=== PATIENT | male | born 1965 | race Caucasian/White ===

== ENCOUNTER 2019-05-11 13:07 | Inpatient (IN) | payer MEDICARE ==
[~2019-05-11] VITALS: Ht 172.7 cm; Wt 138.3 kg
[2019-05-11] MEDS ORDERED: GLUCOPHAGE1000 MG PO (13:15)
[2019-05-11] MEDS ORDERED: NORVASC10 MG (13:16)
[2019-05-11] MEDS ORDERED: HYDRALAZINE HCL50 MG PO (13:16)
[2019-05-11] MEDS ORDERED: GLUCOTROL 5 MG T5 MG PO (13:16)
[2019-05-11] MEDS ORDERED: NORVASC10 MG PO (13:16)
[2019-05-11] MEDS ORDERED: LISINOPRIL40 MG PO (13:16)
[2019-05-11] MEDS ORDERED: TENORMIN50 MG PO (13:16)
[2019-05-11] MEDS ORDERED: ALDACTONE50 MG PO (13:17)
[2019-05-11] MEDS ORDERED: LIPITOR40 MG PO (13:17)
[2019-05-11] MEDS ORDERED: OMEPRAZOLE40 MG PO (13:17)
[2019-05-11 13:43] LABS: APPEARANCE CLEAR (CLEAR); BILIRUBIN NEGATIVE (NEGATIVE); COLOR YELLOW (YELLOW); GLUCOSE NEGATIVE (NEGATIVE); KETONE NEGATIVE (NEGATIVE); NITRITE NEGATIVE (NEGATIVE); PROTEIN NEGATIVE (NEGATIVE); UROBILINOGEN NORMAL (NORMAL)
--- NOTE | 2019-05-11 13:45 | NUR ---
URINE SPEC COLLECTED, LABELED AT BS AND SENT TO LAB
[2019-05-11 13:48] VITALS: BP 109/67
[2019-05-11 13:52] LABS: BASOPHILS 0.1 % (0-2); EOSINOPHILS 0.2 % (0-7); HEMOGLOBIN 12.3 g/dL (13.5-17.5); IMMATURE GRANULOCYTES 0.5 % (0-5); LYMPHOCYTES 5.4 % (15-50); MCH 29.1 pg (26.0-34.0); MCHC 33.2 g/dL (31.0-37.0); MCV 87.5 fL (80.0-100.0); MEAN PLATELET VOLUME 9.3 fL (7.4-10.4); MONOCYTES 3.9 % (2-11); NEUTROPHILS 89.9 % (40-80); PLATELET COUNT 190 10x3/uL (130-400); RBC 4.23 10x6/uL (4.20-6.10); RDW 14.6 % (11.5-14.5); WBC 15.3 10x3/uL (4.8-10.8)
[2019-05-11 14:00] LABS: APTT 31.4 SECONDS (22.8-39.4); INR 1.04 (0.85-1.17); PROTIME 13.6 SECONDS (11.6-15.0)
[2019-05-11 14:02] LABS: CALC OSMOLALITY 286 mosm/kg (275-300); CALCIUM 8.5 mg/dL (8.5-10.1); CHLORIDE - SERUM 105 mmol/L (98-107); CREATININE - SERUM 1.1 mg/dL (0.6-1.3); GLUCOSE 127 mg/dL (74-106); POTASSIUM - SERUM 3.8 mmol/L (3.5-5.1); SODIUM 141 mmol/L (136-145); UREA NITROGEN 25 mg/dL (7-18); eGFR NON AFRICAN AMERICAN 74 mL/min (90-120)
[2019-05-11 14:16] LABS: ALBUMIN 3.1 g/dL (3.4-5.0); ALKALINE PHOSPHATASE 57 U/L (46-116); ALT (SGPT) 29 U/L (10-68); BILIRUBIN - TOTAL 0.33 mg/dL (0.2-1.3); CKMB 0.4 U/L (0.0-3.6); CREATINE KINASE 39 UL (21-232); PROTEIN - SERUM 5.8 g/dL (6.4-8.2); TROPONIN-I < 0.017 ng/mL (0.000-0.060)
--- NOTE | 2019-05-11 18:40 | NUR ---
PATIENT JUST ARRIVED TO THE FLOOR FROM THE ER. FIRST SET OF VITAL SIGNS ARE STABLE. APPLYING TELEMETRY NOW.
[2019-05-11 20:30] VITALS: BP 114/67
--- NOTE | 2019-05-12 00:20 | NUR ---
LYING IN BED ALERT AND ORIENTED x4. NO SIGNS OR SYMPTOMS OF DISTRESS NOTED. RESPIRATIONS EVEN AND UNLABORED. PT COMPLAINED OF 7/10 PAIN LEVEL. PRN MORPHINE GIVEN. NO MORE COMPLAINTS OF PAINAT THIS TIME. 2/10 PAIN LEVEL. FAMILY IS AT BEDSIDE. PT IS UP WITH ASSIST. 86 SINUS RYTHUM ON TELEMETRY. SCDS ARE IN PLACE. IV 20G LEFT AC. SALINE LOCKED. DRESSING IN TACH AND IV IS PATENT. PT ENCOUREGED TO CALL FOR HELP WHEN GETTIN G IN AND OUT OF BED. CALL LIGHT IS WITHIN REACH AND BED IS IN LOWEST POSTION. WILL CONTINUE TO MONITOR.
[2019-05-12 00:30] VITALS: BP 113/69
--- NOTE | 2019-05-12 03:11 | NUR ---
PT COMPLAIN OF FEVER. TEMP TAKEN 100.0. BLANKET REMOVED AND AIR IS ADJUSTED. PRN TYLENOL ORDERED PER CORBIN MEYERS APN. WILL CONTINUE TO MONITOR.
--- NOTE | 2019-05-12 04:11 | NUR ---
I have reviewed this patient and I concur with the Shift Assessment completed by the Licensed Practical Nurse today this shift.
[2019-05-12 04:30] VITALS: BP 113/61; BP 129/78
[2019-05-12 05:53] LABS: HEMATOCRIT 34.2 % (42.0-54.0); HEMOGLOBIN 11.3 g/dL (13.5-17.5); MCH 28.8 pg (26.0-34.0); MCV 87.2 fL (80.0-100.0); MEAN PLATELET VOLUME 9.5 fL (7.4-10.4); PLATELET COUNT 188 10x3/uL (130-400); RBC 3.92 10x6/uL (4.20-6.10); RDW 14.6 % (11.5-14.5)
[2019-05-12 05:54] LABS: WBC 8.9 10x3/uL (4.8-10.8)
[2019-05-12 06:09] LABS: ALBUMIN 2.7 g/dL (3.4-5.0); ALKALINE PHOSPHATASE 47 U/L (46-116); ALT (SGPT) 24 U/L (10-68); BILIRUBIN - TOTAL 0.41 mg/dL (0.2-1.3); CALCIUM 8.2 mg/dL (8.5-10.1); CARBON DIOXIDE 25.4 mmol/L (21.0-32.0); CHLORIDE - SERUM 103 mmol/L (98-107); CREATININE - SERUM 0.9 mg/dL (0.6-1.3); GLUCOSE 101 mg/dL (74-106); PROTEIN - SERUM 5.8 g/dL (6.4-8.2); SODIUM 137 mmol/L (136-145); eGFR NON AFRICAN AMERICAN > 90 mL/min (90-120)
[2019-05-12 06:16] LABS: CALC OSMOLALITY 275 mosm/kg (275-300); POTASSIUM - SERUM 3.2 mmol/L (3.5-5.1); UREA NITROGEN 17 mg/dL (7-18)
--- NOTE | 2019-05-12 06:51 | NUR ---
PRN MORPHINE GIVEN FOR 8/10 PAIN LEVEL
[2019-05-12 06:59] LABS: BASOPHILS 1 % (0-2); LYMPHOCYTES 13 % (15-50); MONOCYTES 2 % (2-11); NEUTROPHILS 82 % (40-80); PLATELET ESTIMATE NORMAL; PLATELET MORPHOLOGY PLT CLUMPS PRESENT; SMUDGE CELLS 2+
[2019-05-12 07:46] VITALS: BP 115/69
--- NOTE | 2019-05-12 07:59 | NUR ---
LYING IN BED ON ROOM AIR. SPOUSE AT BEDSIDE. REQUESTING SOMETHING FOR THE ITCHING TO LEFT LOWER EXTREMITY FROM CELLULITIS. LLE LIGHT RED WITH EDEMA. WILL NOTIFY MD REGARDING MEDICATION. STATES NO OTHER NEEDS.
[2019-05-12 11:45] VITALS: BP 102/63
[2019-05-12 15:38] VITALS: BP 115/70
--- NOTE | 2019-05-12 19:28 | NUR ---
IN BED WITH TELEVISION ON, GUEST AT BEDSIDE. REQUESTS PAIN MEDS THEY ARE AVAILABLE. WILL GIVE ACCORDINGLY. STATES HE IS NOT ABLE TO AMBULATE DUE TO PAIN, UNDERSTOOD. ABLE TO VOICE ALL NEEDS. WILL NOTE ANY CHANGE.
[2019-05-12 20:30] VITALS: BP 133/67
--- NOTE | 2019-05-12 21:00 | NUR ---
AT 2009, REQUESTED MEDICINE FOR PAIN AND NAUSEA, GIVEN PER JUN. DEEMED EFFECTIVE.
--- NOTE | 2019-05-12 22:00 | NUR ---
AT 2100 COMPLAINTS OF BEING ITCHY WERE NOTED. BENADRYL AND TAPE SWITCHED OUT WITH SUCCESS.
--- NOTE | 2019-05-13 00:07 | NUR ---
AT 2340, PT COMPLAINS OF INCREASED PAIN, SWELLING AND REDNESS TO LEG. APPEARANCE IS SAME THIS NURSES FIRST ASSESSMENT, DAWSON NOTIFIED WITH ORDERS TO [facility] PEDAL PULSE, MEASURE CALF AND THIGH AND INCREASE PAIN MEDICINE FROM 0.5MG TO 1MG OF DILAUDID Q6 HOURS. PP CHECK WAS POSITIVE FOR REGULAR PULSE, THIGH MEASURED 26CM, CALF MEASURED 16CM. SKIN IS BRIGHT RED AND HOT TO TOUCH. WILL NOTE ANY CHANGE.
[2019-05-13 01:00] VITALS: BP 114/67
--- NOTE | 2019-05-13 03:24 | NUR ---
I have reviewed this patient and I concur with the Shift Assessment completed by the Licensed Practical Nurse today this shift.
--- NOTE | 2019-05-13 05:36 | NUR ---
AT 0200 REQUESTED MEDS FOR PAIN, TRAUMA AND OTHERS.
[2019-05-13 05:43] VITALS: BP 117/71
[2019-05-13 06:14] LABS: BASOPHILS 0.1 % (0-2); EOSINOPHILS 2.3 % (0-7); HEMATOCRIT 33.7 % (42.0-54.0); IMMATURE GRANULOCYTES 0.1 % (0-5); LYMPHOCYTES 17.3 % (15-50); MCH 28.6 pg (26.0-34.0); MCHC 32.6 g/dL (31.0-37.0); MCV 87.5 fL (80.0-100.0); MEAN PLATELET VOLUME 9.3 fL (7.4-10.4); MONOCYTES 6.9 % (2-11); NEUTROPHILS 73.3 % (40-80); PLATELET COUNT 185 10x3/uL (130-400); RBC 3.85 10x6/uL (4.20-6.10); RDW 14.4 % (11.5-14.5); WBC 6.8 10x3/uL (4.8-10.8)
[2019-05-13 06:29] LABS: ALBUMIN 2.6 g/dL (3.4-5.0); ALKALINE PHOSPHATASE 49 U/L (46-116); ALT (SGPT) 22 U/L (10-68); BILIRUBIN - TOTAL 0.29 mg/dL (0.2-1.3); CALC OSMOLALITY 279 mosm/kg (275-300); CALCIUM 8.2 mg/dL (8.5-10.1); CHLORIDE - SERUM 104 mmol/L (98-107); CREATININE - SERUM 0.9 mg/dL (0.6-1.3); GLUCOSE 117 mg/dL (74-106); POTASSIUM - SERUM 3.3 mmol/L (3.5-5.1); PROTEIN - SERUM 5.9 g/dL (6.4-8.2); SODIUM 140 mmol/L (136-145); UREA NITROGEN 13 mg/dL (7-18); eGFR NON AFRICAN AMERICAN > 90 mL/min (90-120)
[2019-05-13 08:00] VITALS: BP 125/83
[2019-05-13 12:00] VITALS: BP 119/71
[2019-05-13 16:00] VITALS: BP 121/73
[2019-05-13 20:00] VITALS: BP 98/60
--- NOTE | 2019-05-13 23:43 | NUR ---
LEFT AV PIV WAS LEAKING BLOOD AROUND PIV. REMOVED, CATH INTACT. PLACED A RIGHT HAND PIV 22 1 STICK. PATIENT TOLERATED WELL.
[2019-05-14] VITALS: BP 123/75
[2019-05-14 04:00] VITALS: BP 124/76
--- NOTE | 2019-05-14 04:41 | NUR ---
I have reviewed this patient and I concur with the Shift Assessment completed by the Licensed Practical Nurse today this shift.
[2019-05-14 05:42] LABS: BASOPHILS 0.2 % (0-2); EOSINOPHILS 3.7 % (0-7); HEMATOCRIT 34.4 % (42.0-54.0); HEMOGLOBIN 11.3 g/dL (13.5-17.5); IMMATURE GRANULOCYTES 0.2 % (0-5); LYMPHOCYTES 17.5 % (15-50); MCH 28.7 pg (26.0-34.0); MCHC 32.8 g/dL (31.0-37.0); MCV 87.3 fL (80.0-100.0); MEAN PLATELET VOLUME 9.2 fL (7.4-10.4); MONOCYTES 10.2 % (2-11); NEUTROPHILS 68.2 % (40-80); PLATELET COUNT 212 10x3/uL (130-400); RBC 3.94 10x6/uL (4.20-6.10); RDW 14.1 % (11.5-14.5); WBC 6.3 10x3/uL (4.8-10.8)
[2019-05-14 06:18] LABS: ALBUMIN 2.6 g/dL (3.4-5.0); ALKALINE PHOSPHATASE 54 U/L (30-120); ALT (SGPT) 19 U/L (10-68); BILIRUBIN - TOTAL 0.32 mg/dL (0.2-1.3); CALC OSMOLALITY 279 mosm/kg (275-300); CALCIUM 8.3 mg/dL (8.5-10.1); CARBON DIOXIDE 27.2 mmol/L (21.0-32.0); CHLORIDE - SERUM 103 mmol/L (98-107); CREATININE - SERUM 0.8 mg/dL (0.6-1.3); GLUCOSE 120 mg/dL (74-106); POTASSIUM - SERUM 3.4 mmol/L (3.5-5.1); PROTEIN - SERUM 6.1 g/dL (6.4-8.2); SODIUM 139 mmol/L (136-145); UREA NITROGEN 16 mg/dL (7-18); eGFR NON AFRICAN AMERICAN > 90 mL/min (90-120)
[2019-05-14 08:00] VITALS: BP 123/84
--- NOTE | 2019-05-14 08:25 | NUR ---
PT RESTING. RR EVEN AND UNLABORED. STATES PAIN IN LEG. DILAUDID AND ZOFRAN GIVEN PER ORDER. DENIES FURTHER NEEDS AT THIS TIME. BED IN LOWEST POSITION. CALL LIGHT WITHIN REACH. WILL CONTINUE TO MONITOR.
[2019-05-14 16:00] VITALS: BP 128/86
--- NOTE | 2019-05-14 19:33 | NUR ---
RECIEVED UP IN BED WITH EYES OPEN AND TV ON. ALERT AND ORIENTED X4. BEDFAST AT THIS TIME D/T WEAKNESSS. STATED " I CAN'T WALK". NO IV AT THIS TIME. LEFT LOWER EXTREMITY WARM AND RED. TELEMETRY IN PLACE. DENIES ANY NEEDS AT THIS TIME.
[2019-05-14 20:00] VITALS: BP 112/64
--- NOTE | 2019-05-14 20:01 | NUR ---
ATTEMPTS X2 TYO RESTART IV UNSUCESSFUL. WILL HAVE ANOTHER NURSE TRY.
--- NOTE | 2019-05-14 22:11 | NUR ---
ANOTHER NURSE ATTEMPTED X2. UNSUCESSFUL. WILL SEE IF JOSE ALBERTO RN IN ER WILL ATTEMPT WHEN SLOWS DOWN IN ER.
[2019-05-15] VITALS: BP 132/92
--- NOTE | 2019-05-15 02:37 | NUR ---
IV STARTED TO RIGHT WRIST BY JOSE ALBERTO MCNAMARA. CLEOCIN INFUSING AT THIS TIME. DILAUID IV GIVEN FOR PAIN.
[2019-05-15 04:00] VITALS: BP 128/92
[2019-05-15 06:37] LABS: BASOPHILS 0.3 % (0-2); EOSINOPHILS 4.6 % (0-7); HEMATOCRIT 35.4 % (42.0-54.0); HEMOGLOBIN 11.7 g/dL (13.5-17.5); IMMATURE GRANULOCYTES 0.3 % (0-5); LYMPHOCYTES 21.1 % (15-50); MCH 28.7 pg (26.0-34.0); MCHC 33.1 g/dL (31.0-37.0); MEAN PLATELET VOLUME 9.2 fL (7.4-10.4); MONOCYTES 7.7 % (2-11); PLATELET COUNT 225 10x3/uL (130-400); RBC 4.07 10x6/uL (4.20-6.10); RDW 13.9 % (11.5-14.5); WBC 6.1 10x3/uL (4.8-10.8)
[2019-05-15 06:51] LABS: ALBUMIN 2.7 g/dL (3.4-5.0); ALKALINE PHOSPHATASE 59 U/L (30-120); ALT (SGPT) 20 U/L (10-68); BILIRUBIN - TOTAL 0.34 mg/dL (0.2-1.3); CALC OSMOLALITY 280 mosm/kg (275-300); CARBON DIOXIDE 27.3 mmol/L (21.0-32.0); CHLORIDE - SERUM 104 mmol/L (98-107); CREATININE - SERUM 0.7 mg/dL (0.6-1.3); GLUCOSE 122 mg/dL (74-106); POTASSIUM - SERUM 3.7 mmol/L (3.5-5.1); PROTEIN - SERUM 6.4 g/dL (6.4-8.2); SODIUM 140 mmol/L (136-145); UREA NITROGEN 16 mg/dL (7-18); eGFR NON AFRICAN AMERICAN > 90 mL/min (90-120)
[2019-05-15 08:00] VITALS: BP 125/81
[2019-05-15 12:00] VITALS: BP 139/89
--- NOTE | 2019-05-15 15:00 | NUR ---
PATIENT LYING IN BED. ALERT/ORIENTED. CALL LIGHT WITHIN REACH. NO DISTRESS. IV SALINED LOCKED AT THIS TIME. PATIENT DENIES ANY NEEDS.
[2019-05-15 16:00] VITALS: BP 141/82
--- NOTE | 2019-05-15 19:36 | NUR ---
RECEIVED UP IN BED WITH EYES OPEN AND SPOUSE AT BEDSIDE. ALERT AND ORIENTED X4. REMAINS BEDFAST. LEFT LEG REMAINS RED AND WARM TO TOUCH. TELEMETRY IN PLACE. IV TO RIGHT HAND SL. DENIES ANY NEEDS AT THIS TIME.
[2019-05-15 20:00] VITALS: BP 125/84
[2019-05-16] VITALS: BP 123/87
[2019-05-16 04:00] VITALS: BP 127/80
[2019-05-16 06:05] LABS: BASOPHILS 0.3 % (0-2); HEMATOCRIT 36.6 % (42.0-54.0); HEMOGLOBIN 12.2 g/dL (13.5-17.5); IMMATURE GRANULOCYTES 0.6 % (0-5); LYMPHOCYTES 23.9 % (15-50); MCH 29.3 pg (26.0-34.0); MCHC 33.3 g/dL (31.0-37.0); MCV 87.8 fL (80.0-100.0); MEAN PLATELET VOLUME 9.3 fL (7.4-10.4); NEUTROPHILS 63.2 % (40-80); RBC 4.17 10x6/uL (4.20-6.10); RDW 14.2 % (11.5-14.5)
[2019-05-16 06:13] LABS: ALBUMIN 2.9 g/dL (3.4-5.0); ALKALINE PHOSPHATASE 63 U/L (30-120); BILIRUBIN - TOTAL 0.25 mg/dL (0.2-1.3); CALC OSMOLALITY 281 mosm/kg (275-300); CALCIUM 8.9 mg/dL (8.5-10.1); CARBON DIOXIDE 26.1 mmol/L (21.0-32.0); CHLORIDE - SERUM 102 mmol/L (98-107); CREATININE - SERUM 0.8 mg/dL (0.6-1.3); GLUCOSE 127 mg/dL (74-106); PROTEIN - SERUM 6.8 g/dL (6.4-8.2); SODIUM 139 mmol/L (136-145); UREA NITROGEN 19 mg/dL (7-18); eGFR NON AFRICAN AMERICAN > 90 mL/min (90-120)
[2019-05-16 06:14] LABS: ALT (SGPT) 27 U/L (10-68)
[2019-05-16 07:01] LABS: PLATELET COUNT 289 10x3/uL (130-400); WBC 7.9 10x3/uL (4.8-10.8)
[2019-05-16 08:03] VITALS: BP 151/94
--- NOTE | 2019-05-16 11:52 | NUR ---
RIGHT HAND 22G IV INFILTRATED DC'D WITH CATH INTACT. VASCULAR ACCESS CONSULTED FOR NEW PIV.
[2019-05-16 12:04] VITALS: BP 117/78
--- NOTE | 2019-05-16 13:06 | NUR ---
VASCULAR ACCESS NURSE HAS NOT CAME TO INSERT PIV. CALLED HER PHONE AND DID NOT RECEIVE AN ANSWER BUT I WAS ABLE TO LEAVE A VOICEMAIL.
--- NOTE | 2019-05-16 14:35 | NUR ---
VASCULAR ACCESS NURSE KHUSHBU INSERTED 22G IV IN LEFT HAND. WILL KEEP PT KVO WITH NS.
[2019-05-16 14:57] VITALS: BP 139/89
[2019-05-16] MEDS ORDERED: CLEOCIN HCL300 MG PO (15:24)
[2019-05-16] MEDS ORDERED: NEURONTIN 300300 MG PO (15:25)
--- NOTE | 2019-05-16 16:04 | NUR ---
I have reviewed this patient and I concur with the Shift Assessment completed by the Licensed Practical Nurse today this shift.
--- NOTE | 2019-05-16 16:09 | MORECARE ---
CASE MANAGEMENT DISCHARGE SUMMARY PATIENT: CHINYERE THOMPSON UNIT: [id number] ADM DATE: 05/11/19 AGE: 53 : 65 SEX: M ROOM/BED: D.2139 AUTHOR: ULICES ANTUNEZ PHYSICIAN: REFERRING PHYSICIAN: LILY LIU DO DATE OF SERVICE: 05/16/19 Discharge Plan Patient Name: CHINYERE THOMPSON Facility: [facility]:[place] : 1965 Planned Disposition: Home Anticipated Discharge Date: Discharge Date: Expected LOS: Initial Reviewer: [email or web address] Initial Review Date: 05/16/2019 Generated: 05/16/19 5:08 pm Patient Name: CHINYERE THOMPSON Page 42842 at 1609 All edits/amendments must be made on the electronic document DICTATION DATE: 05/16/191607 HIGH SCHOOL SOCIAL STUDIES TEACHER: ALBERTINA 05/16/191607 RPT#: [id number] DC DATE: STATUS: ADM IN [facility] [address] [place] [address] END OF REPORT
--- NOTE | 2019-05-16 16:19 | MORECARE ---
CASE MANAGEMENT DISCHARGE SUMMARY PATIENT: CHINYERE THOMPSON UNIT: [id number] ADM DATE: 05/11/19 AGE: 53 : 65 SEX: M ROOM/BED: D.2289 AUTHOR: TULIO,DOC PHYSICIAN: REFERRING PHYSICIAN: LILY LIU DO DATE OF SERVICE: 05/16/19 Discharge Plan Patient Name: CHINYERE THOMPSON Facility: [facility]:[place] : 1965 Planned Disposition: Home Anticipated Discharge Date: Discharge Date: Expected LOS: Initial Reviewer: [email or web address] Initial Review Date: 05/16/2019 Generated: 05/16/19 5:18 pm Comments DCP- Discharge Planning Updated by [email or web address]: Natalya Castillo on 05/16/19 3:[address] Patient Name: CHINYERE THOMPSON Admission Status: ER Accout number: [id number] Admission Date: 05-11-2019 : 1965 Admission Diagnosis: Attending: LILY LIU Current LOS: 5 Anticipated DC Date: Planned Disposition: Home Primary Insurance: MEDICARE A & B Discharge Planning Comments: CM met with patient to complete initial dc planning assessment. CM educated patient on the CM role and verbal consent given by patient to complete assessment. CM verified patient's address, phone number, and emergency contact phone numbers. Patient lives at home with friend Cassie. At discharge patient plans to return home, but feels he should not be discharged today. CM discussed availability of home health, rehab services, and medical equipment. Patient denied this at this time. States he has been working with PT this week, and does not want home health services at home. CM will continue to follow and will assist as needed with dc plans/needs. IMM delivered, explained, signed by the patient, and placed in his chart. Signed form also left with patient. Supervisor Housecleaner: Natalya LUCAS,CM DCPIA - Discharge Planning Initial Assessment Updated by [email or web address]: Natalya Castillo on 05/16/19 4:08 pm * Is the patient Alert and Oriented? Yes * How many steps to enter\exit or inside your home? 5/0 * PCP Messiney * Pharmacy [facility] * Preadmission Environment Home with Family * ADLs Total Dependent * Equipment None * List name and contact numbers for known caregivers / representatives who currently or will assist patient after discharge: Cassiekim Urbanoier [phone] * Verbal permission to speak to the caregivers and representatives has been obtained from the patient. Yes * Community resources currently utilized None * Additional services required to return to the preadmission environment? No * Can the patient safely return to the preadmission environment? Yes * Has this patient been hospitalized within the prior 30 days at any hospital? No Last DP export: 05/16/19 3:09 p Patient Name: CHINYERE THOMPSON Page 22298 at 1619 All edits/amendments must be made on the electronic document DICTATION DATE: 05/16/191617 TECHNICAL TRAINER: ALBERTINA 05/16/191617 RPT#: [id number] DC DATE: STATUS: ADM IN [facility] [address] [place] [address] END OF REPORT
--- NOTE | 2019-05-16 16:20 | NUR ---
PT RECEIVED BATH WITH HELP OF IMPRESS ASSOCIATE. COMPLETE LINEN CHANGE DONE.
[2019-05-16 20:00] VITALS: BP 127/86
--- NOTE | 2019-05-16 20:13 | NUR ---
RECEIVED UP IN BED WITH EYES OPEN AND TV ON. SPOUSE AT BEDSIDE. ALERT AND ORIENTED X4. RIGHT LEG LOOKS MUCH BETTER WITH JEAN CARLOS AREA TO BACK OF CALVE. WARM TO TOUCH IN THAT AREA. IV TO LEFT HAND WITH NS AT KVO. TELEMETRY IN PLACE. DENIES ANY NEEDS AT THIS TIME.
[2019-05-17] VITALS: BP 119/82
[2019-05-17 04:00] VITALS: BP 132/85
[2019-05-17 06:05] LABS: BASOPHILS 0.4 % (0-2); EOSINOPHILS 3.5 % (0-7); HEMATOCRIT 36.1 % (42.0-54.0); HEMOGLOBIN 11.8 g/dL (13.5-17.5); IMMATURE GRANULOCYTES 0.6 % (0-5); LYMPHOCYTES 20.9 % (15-50); MCH 28.6 pg (26.0-34.0); MCHC 32.7 g/dL (31.0-37.0); MCV 87.4 fL (80.0-100.0); MEAN PLATELET VOLUME 9.1 fL (7.4-10.4); MONOCYTES 6.1 % (2-11); NEUTROPHILS 68.5 % (40-80); PLATELET COUNT 284 10x3/uL (130-400); RBC 4.13 10x6/uL (4.20-6.10); RDW 14.1 % (11.5-14.5); WBC 8.2 10x3/uL (4.8-10.8)
[2019-05-17 06:29] LABS: ALBUMIN 2.7 g/dL (3.4-5.0); ALKALINE PHOSPHATASE 57 U/L (30-120); ALT (SGPT) 28 U/L (10-68); BILIRUBIN - TOTAL 0.35 mg/dL (0.2-1.3); CALC OSMOLALITY 278 mosm/kg (275-300); CALCIUM 8.4 mg/dL (8.5-10.1); CHLORIDE - SERUM 103 mmol/L (98-107); CREATININE - SERUM 0.8 mg/dL (0.6-1.3); GLUCOSE 125 mg/dL (74-106); POTASSIUM - SERUM 3.6 mmol/L (3.5-5.1); PROTEIN - SERUM 6.4 g/dL (6.4-8.2); SODIUM 138 mmol/L (136-145); UREA NITROGEN 17 mg/dL (7-18); eGFR NON AFRICAN AMERICAN > 90 mL/min (90-120)
--- NOTE | 2019-05-17 07:58 | NUR ---
REPORT RECIEVED. PT SITTING SEMI FOWLERS IN BED. RR EVEN AND UNLABORED ON RA. PT HAS A L HAND PIV INFUSING NS AT KVO. BED LOCKED AND IN LOWEST POSITION, CALL LIGHT WITHIN REACH. WILL CTM
[2019-05-17 09:01] VITALS: BP 144/87
[2019-05-17 13:17] VITALS: BP 133/80
[2019-05-17 15:23] VITALS: Ht 172.7 cm; Wt 138.3 kg
[2019-05-17 16:12] VITALS: BP 127/81
--- NOTE | 2019-05-17 17:39 | NUR ---
I have reviewed this patient and I concur with the Shift Assessment completed by the Licensed Practical Nurse today this shift.
[2019-05-17 20:00] VITALS: BP 126/89
--- NOTE | 2019-05-17 23:10 | NUR ---
PT LYING IN BEDE WATCHING TV. ALERT AND ORIENTED x4. NO SIGNS OR SYMPTOMS OF DISTRESS NOTED. RESPIRATIONS EVEN AND UNLABORED. PT CONTINENT OF BOWELL AND BLADDER. BOWELL SOUNDS ACTIVE x4. PT STATED LAST BOWELL MOVEMENT WAS 05/17/2019. ABDOMEN SOFT TO PALPATION. PT COMPLAINED OF 8/10 PAIN LEVEL. PRN PAIN MEDICATION GIVEN. DURING REASSESSMENT PT STATED THAT PAIN LEVEL IS MUCH BETTER AND IT IS NOW A 2/10. FAMILY IS AT BEDSIDE. 68 SINUS RYTHUM ON TELEMETRY. PT HAS REDNESS TO LEFTLOWER LEG WHICH IS WARM TO TOUCH. PT STATED THAT HE LEG LOOKS BETTER TODAY. PT GOAL IS TO CONTROL PAIN AND ALSO CONTROL ITCH. RIGHT HAND IV RUNNING NORMAL SALINE @15. PT ENCOURAGED TO CALL FOR HELP WHEN GETTING IN AND OUT OF BED. CALL LIGHT WITHIN REACH AND BED IN LOWEST POSITION. WILL CONTINUE TO MONITOR.
[2019-05-18] VITALS: BP 129/82
--- NOTE | 2019-05-18 01:16 | NUR ---
I have reviewed this patient and I concur with the Shift Assessment completed by the Licensed Practical Nurse today this shift.
--- NOTE | 2019-05-18 02:43 | NUR ---
PRN PAIN MEDICATION GIVEN FOR 8/10 PAIN LEVEL. BENADRLY GIVEN FOR ITCH. PT AWAKE, ALERT AND ORIENTED x4. WILL CONTINUE TO MONITOR.
[2019-05-18 04:00] VITALS: BP 118/80
[2019-05-18 06:17] LABS: BASOPHILS 0.4 % (0-2); EOSINOPHILS 4.2 % (0-7); HEMATOCRIT 36.5 % (42.0-54.0); HEMOGLOBIN 11.9 g/dL (13.5-17.5); IMMATURE GRANULOCYTES 0.7 % (0-5); LYMPHOCYTES 22.9 % (15-50); MCH 28.5 pg (26.0-34.0); MCHC 32.6 g/dL (31.0-37.0); MCV 87.3 fL (80.0-100.0); MEAN PLATELET VOLUME 9.1 fL (7.4-10.4); MONOCYTES 5.3 % (2-11); NEUTROPHILS 66.5 % (40-80); PLATELET COUNT 330 10x3/uL (130-400); RBC 4.18 10x6/uL (4.20-6.10); RDW 14.2 % (11.5-14.5); WBC 8.5 10x3/uL (4.8-10.8)
[2019-05-18 06:28] LABS: ALBUMIN 2.7 g/dL (3.4-5.0); ALKALINE PHOSPHATASE 59 U/L (30-120); ALT (SGPT) 28 U/L (10-68); BILIRUBIN - TOTAL 0.23 mg/dL (0.2-1.3); CALC OSMOLALITY 275 mosm/kg (275-300); CALCIUM 8.6 mg/dL (8.5-10.1); CARBON DIOXIDE 26.2 mmol/L (21.0-32.0); CHLORIDE - SERUM 102 mmol/L (98-107); CREATININE - SERUM 0.8 mg/dL (0.6-1.3); GLUCOSE 122 mg/dL (74-106); POTASSIUM - SERUM 3.6 mmol/L (3.5-5.1); PROTEIN - SERUM 6.3 g/dL (6.4-8.2); SODIUM 137 mmol/L (136-145); UREA NITROGEN 16 mg/dL (7-18); eGFR NON AFRICAN AMERICAN > 90 mL/min (90-120)
[2019-05-18 08:00] VITALS: BP 118/71
--- NOTE | 2019-05-18 13:21 | NUR ---
PT'S DISCHARGE INSTRUCTIONS REVIEWED. IV REMOVED. SCRIPTS AT [facility]. TELEMETRY REMOVED.
--- NOTE | 2019-05-18 15:01 | MORECARE ---
CASE MANAGEMENT DISCHARGE SUMMARY PATIENT: CHINYERE THOMPSON UNIT: [id number] ADM DATE: 05/11/19 AGE: 53 : 65 SEX: M ROOM/BED: D.2782 AUTHOR: TULIO,DOC PHYSICIAN: REFERRING PHYSICIAN: LILY LIU DO DATE OF SERVICE: 05/18/19 Discharge Plan Patient Name: CHINYERE THOMPSON Facility: [facility]:[place] : 1965 Planned Disposition: Home Anticipated Discharge Date: 05/18/19 Discharge Date: 05/18/2019 Expected LOS: 7 Initial Reviewer: [email or web address] Initial Review Date: 05/16/2019 Generated: 05/18/19 4:00 pm DCP- Discharge Planning Updated by [email or web address]: Natalya Castillo on 05/16/19 3:[address] Patient Name: CHINYERE THOMPSON Admission Status: ER Accout number: [id number] Admission Date: 05-11-2019 : 1965 Admission Diagnosis: Attending: LILY LIU Current LOS: 5 Anticipated DC Date: Planned Disposition: Home Primary Insurance: MEDICARE A & B Discharge Planning Comments: CM met with patient to complete initial dc planning assessment. CM educated patient on the CM role and verbal consent given by patient to complete assessment. CM verified patient's address, phone number, and emergency contact phone numbers. Patient lives at home with friend Cassie. At discharge patient plans to return home, but feels he should not be discharged today. CM discussed availability of home health, rehab services, and medical equipment. Patient denied this at this time. States he has been working with PT this week, and does not want home health services at home. CM will continue to follow and will assist as needed with dc plans/needs. IMM delivered, explained, signed by the patient, and placed in his chart. Signed form also left with patient. Arch Cushion Skiving Machine Operator: Natalya LUCAS,CM DCPIA - Discharge Planning Initial Assessment Updated by [email or web address]: Natalya Castillo on 05/16/19 4:08 pm * Is the patient Alert and Oriented? Yes * How many steps to enter\exit or inside your home? 5/0 * PCP Messiney * Pharmacy [facility] * Preadmission Environment Home with Family * ADLs Total Dependent * Equipment None * List name and contact numbers for known caregivers / representatives who currently or will assist patient after discharge: Cassie Stack [phone] * Verbal permission to speak to the caregivers and representatives has been obtained from the patient. Yes * Community resources currently utilized None * Additional services required to return to the preadmission environment? No * Can the patient safely return to the preadmission environment? Yes * Has this patient been hospitalized within the prior 30 days at any hospital? No Last DP export: 05/16/19 3:19 p Patient Name: CHINYERE THOMPSON Page 17711 at 1501 All edits/amendments must be made on the electronic document DICTATION DATE: 05/18/19 1501 ADJUNCT INSTRUCTOR OF WOMEN'S STUDIES: ALBERTINA 05/18/19 1501 RPT#: [id number] DC DATE:05/18/19 STATUS: DIS IN [facility] [address] [place] [address] END OF REPORT
== END 2019-05-18 14:28 | disposition home or self-care (01) | DRG 638 ==
LOC: D.ER 13:07 → D.M2 16:33
PROVIDERS: Emergency Medicine; Internal Medicine Nephrology; ADMIT Family Medicine; ATTEND Family Medicine
DX: E11.628 Type 2 diabetes mellitus with other skin complications (principal); L03.116 Cellulitis of left lower limb; Z68.42 Body mass index [BMI] 45.0-49.9, adult; N17.9 Acute kidney failure, unspecified; E11.65 Type 2 diabetes mellitus with hyperglycemia; D64.9 Anemia, unspecified; I10 Essential (primary) hypertension; E78.5 Hyperlipidemia, unspecified; K21.9 Gastro-esophageal reflux disease without esophagitis; E66.01 Morbid (severe) obesity due to excess calories; Z86.711 Personal history of pulmonary embolism